=== PATIENT | female | born 1940 | race Caucasian/White ===

== ENCOUNTER 2022-04-16 21:12 | Outpatient (REF) | payer MEDICARE, SELFPAY ==
[2022-04-16 22:10] LABS: HCT 36.7 % (36.0-46.0); HGB 11.7 g/dL (11.2-15.7); MCH 30.2 pg (27.0-33.0); MCHC 31.9 % (32.0-36.0); MCV 95 fL (80-95); MPV 11.3 fL (8.0-11.0); Platelet Count 172 10^3/uL (130-400); RBC 3.88 10^6/uL (3.93-5.22); RDW-SD 48.6 fL
[2022-04-16 22:28] LABS: ALT 18 U/L (14-59); AST 22 U/L (15-37); Albumin 3.9 g/dL (3.4-5.0); Alkaline Phosphatase 105 U/L (46-116); Anion Gap 6.1 mmol/L (3-11); BUN 19 mg/dL (7-18); Bilirubin, Total 0.3 mg/dL (0.2-1.0); CO2 28.9 mmol/L (21.0-32.0); CREATININE 1.1 mg/dL (0.55-1.02); Calcium 9.4 mg/dL (8.5-10.1); Chloride 102 mmol/L (98-107); Glucose 124 mg/dL (74-106); Potassium 4.9 mmol/L (3.5-5.1); Sodium 137 mmol/L (136-145); TSH 0.65 uIU/mL (0.36-3.74); Total Protein 7.3 g/dL (6.4-8.2)
[2022-04-16 22:30] LABS: Hemoglobin A1C 6.7 % (<5.7)
== END 2022-04-16 21:13 | disposition home or self-care (01) ==
LOC: NCHCN 21:12
PROVIDERS: Visit Provider Family Medicine
DX: E11.9 Type 2 diabetes mellitus without complications (principal); I10 Essential (primary) hypertension; E03.9 Hypothyroidism, unspecified; M54.50 Low back pain, unspecified; L98.491 Non-pressure chronic ulcer of skin of other sites limited to breakdown of skin
CPT/HCPCS: 80053; 85027; 83036; 84443

== ENCOUNTER 2022-10-29 14:47 | Outpatient (REF) | payer MEDICARE, SELFPAY ==
[2022-10-29 21:56] LABS: Hemoglobin A1C 6.5 % (<5.7)
[2022-10-29 22:11] LABS: ALT 23 U/L (14-59); AST 28 U/L (15-37); Albumin 3.8 g/dL (3.4-5.0); Alkaline Phosphatase 103 U/L (46-116); Anion Gap 5.7 mmol/L (3-11); BUN 24 mg/dL (7-18); Bilirubin, Total 0.6 mg/dL (0.2-1.0); CO2 26.3 mmol/L (21.0-32.0); CREATININE 1.3 mg/dL (0.55-1.02); Calcium 9.1 mg/dL (8.5-10.1); Chloride 103 mmol/L (98-107); Estimated GFR 41.31 (mL/min/1.73m2); Glucose 96 mg/dL (74-106); Potassium 5.6 mmol/L (3.5-5.1); Sodium 135 mmol/L (136-145); Total Protein 7.2 g/dL (6.4-8.2)
[2022-10-29 22:30] LABS: FREE T4 1.25 ng/dL (0.76-1.46)
== END 2022-10-29 14:48 | disposition home or self-care (01) ==
LOC: NCHCN 14:47
PROVIDERS: Visit Provider Family Medicine
DX: E11.9 Type 2 diabetes mellitus without complications (principal); I10 Essential (primary) hypertension
CPT/HCPCS: 80053; 83036; 84439; 84443

== ENCOUNTER 2022-11-17 16:10 | Outpatient (REF) | payer MEDICARE, SELFPAY ==
[2022-11-17 21:28] LABS: Anion Gap 5.7 mmol/L (3-11); BUN 25 mg/dL (7-18); CO2 28.3 mmol/L (21.0-32.0); CREATININE 1.3 mg/dL (0.55-1.02); Calcium 9.3 mg/dL (8.5-10.1); Chloride 106 mmol/L (98-107); Estimated GFR 41.31 (mL/min/1.73m2); Glucose 117 mg/dL (74-106); Potassium 5.6 mmol/L (3.5-5.1); Sodium 140 mmol/L (136-145); TSH (W/Ref FT4) 0.26 uIU/mL (0.36-3.74)
[2022-11-17 21:57] LABS: FREE T4 0.99 ng/dL (0.76-1.46)
== END 2022-11-17 16:11 | disposition home or self-care (01) ==
LOC: NCHCN 16:10
PROVIDERS: Visit Provider Family Medicine
DX: I10 Essential (primary) hypertension (principal); E03.9 Hypothyroidism, unspecified
CPT/HCPCS: 80048; 84439; 84443

== ENCOUNTER 2022-12-17 14:56 | Outpatient (REF) | payer MEDICARE, SELFPAY ==
[2022-12-17 17:19] LABS: HCT 37.7 % (36.0-46.0); MCH 29.8 pg (27.0-33.0); MCHC 31.8 % (32.0-36.0); MCV 94 fL (80-95); MPV 11.2 fL (8.0-11.0); Platelet Count 189 10^3/uL (130-400); RBC 4.03 10^6/uL (3.93-5.22); RDW 13.5 % (11.7-14.6); RDW-SD 46.5 fL; WBC 5.39 10^3/uL (4.4-10.8)
[2022-12-17 17:24] LABS: Anion Gap 6.3 mmol/L (3-11); BUN 17 mg/dL (7-18); CO2 28.7 mmol/L (21.0-32.0); CREATININE 1.2 mg/dL (0.55-1.02); Calcium 9.3 mg/dL (8.5-10.1); Chloride 105 mmol/L (98-107); Estimated GFR 45.48 (mL/min/1.73m2); Glucose 105 mg/dL (74-106); Potassium 4.9 mmol/L (3.5-5.1); Sodium 140 mmol/L (136-145)
== END 2022-12-17 14:57 | disposition home or self-care (01) ==
LOC: NCHCN 14:56
PROVIDERS: Visit Provider Family Medicine
DX: R11.0 Nausea (principal); E87.0 Hyperosmolality and hypernatremia; M54.16 Radiculopathy, lumbar region
CPT/HCPCS: 80048; 85027

== ENCOUNTER 2023-03-09 13:10 | Outpatient (REF) | payer MEDICARE, SELFPAY ==
[2023-03-09 22:18] LABS: Abs Immature Grans 0.02 10^3/uL (0.0-0.06); Absolute Basophil Count 0.05 10^3/uL (0.0-0.2); Absolute Eosinophil Count 0.23 10^3/uL (0.0-0.7); Absolute Lymphocyte Count 1.74 10^3/uL (1.2-3.4); Absolute Monocyte Count 0.33 10^3/uL (0.1-0.8); Absolute Neutrophil Count 3.44 10^3/uL (1.2-6.7); Basophils % 0.9; HGB 11.3 g/dL (11.2-15.7); Immature Grans % 0.3; Lymphocytes % 29.9; MCH 29.1 pg (27.0-33.0); MCHC 31.4 % (32.0-36.0); MCV 93 fL (80-95); MPV 11.4 fL (8.0-11.0); Monocytes % 5.7; Neutrophils % 59.2; Platelet Count 168 10^3/uL (130-400); RBC 3.88 10^6/uL (3.93-5.22); RDW 14.4 % (11.7-14.6); RDW-SD 48.7 fL; WBC 5.81 10^3/uL (4.4-10.8)
[2023-03-09 22:34] LABS: Iron 96 ug/dL (50-170); Total Iron Binding Capacity 381 ug/dL (250-450); Transferrin Sat 25 % (15-50)
[2023-03-09 22:46] LABS: Anion Gap 5.4 mmol/L (3-11); BUN 17 mg/dL (7-18); CO2 30.6 mmol/L (21.0-32.0); CREATININE 1.1 mg/dL (0.55-1.02); Calcium 9.2 mg/dL (8.5-10.1); Chloride 102 mmol/L (98-107); Estimated GFR 50.48 (mL/min/1.73m2); Ferritin 48 ng/mL (8-252); Glucose 103 mg/dL (74-106); Potassium 4.7 mmol/L (3.5-5.1); Sodium 138 mmol/L (136-145); TSH (W/Ref FT4) 2.27 uIU/mL (0.36-3.74)
[2023-03-09 22:48] LABS: COMMENT (LAB VIEW ONLY) 23.76 mg/dL
== END 2023-03-09 13:11 | disposition home or self-care (01) ==
LOC: NCHCN 13:10
PROVIDERS: PCP Family Medicine; Visit Provider Family Medicine
DX: D69.6 Thrombocytopenia, unspecified (principal)
CPT/HCPCS: 80048; 82043; 82570; 82728; 83540; 83550; 84443; 85025

== ENCOUNTER 2023-09-24 13:07 | Outpatient (REF) | payer MEDICARE, SELFPAY ==
[2023-09-24 21:53] LABS: Anion Gap 5.2 mmol/L (3-11); BUN 21 mg/dL (7-18); CO2 31.8 mmol/L (21.0-32.0); CREATININE 1.1 mg/dL (0.55-1.02); Calcium 9.7 mg/dL (8.5-10.1); Chloride 103 mmol/L (98-107); Estimated GFR 50.48 (mL/min/1.73m2); Glucose 102 mg/dL (74-106); Potassium 5.2 mmol/L (3.5-5.1); Sodium 140 mmol/L (136-145); TSH (W/Ref FT4) 5.18 uIU/mL (0.36-3.74)
[2023-09-24 22:23] LABS: FREE T4 0.89 ng/dL (0.76-1.46)
== END 2023-09-24 13:08 | disposition home or self-care (01) ==
LOC: NCHCN 13:07
PROVIDERS: PCP Family Medicine; Visit Provider Family Medicine
DX: E03.9 Hypothyroidism, unspecified (principal); N18.9 Chronic kidney disease, unspecified
CPT/HCPCS: 80048; 84439; 84443

== ENCOUNTER 2023-11-19 13:52 | Outpatient (REF) | payer MEDICARE, SELFPAY ==
[2023-11-19 14:39] LABS: TSH 4.11 uIU/Ml (0.36-3.74)
== END 2023-11-19 13:53 | disposition home or self-care (01) ==
LOC: NCHCN 13:52
PROVIDERS: PCP Family Medicine; Visit Provider Family Medicine
DX: E03.9 Hypothyroidism, unspecified (principal)
CPT/HCPCS: 84443

== ENCOUNTER 2024-01-07 15:49 | Outpatient (REF) | payer MEDICARE, SELFPAY ==
[2024-01-07 21:31] LABS: Anion Gap 8.6 mmol/L (3-11); BUN 21 mg/dL (7-18); CO2 28.4 mmol/L (21.0-32.0); CREATININE 1.1 mg/dL (0.55-1.02); Calcium 8.8 mg/dL (8.5-10.1); Chloride 101 mmol/L (98-107); Estimated GFR 50.17 (mL/min/1.73m2); Glucose 171 mg/dL (74-106); Magnesium 1.4 mg/dL (1.8-2.4); Potassium 4.5 mmol/L (3.5-5.1); Sodium 138 mmol/L (136-145)
== END 2024-01-07 15:50 | disposition home or self-care (01) ==
LOC: NCHCN 15:49
PROVIDERS: PCP Family Medicine; Visit Provider Registered Nurse
DX: E83.42 Hypomagnesemia (principal)
CPT/HCPCS: 80048; 83735